=== PATIENT | female | born 1985 | race Two or more races ===

== ENCOUNTER 2022-04-04 11:35 | Inpatient (IN) ==
[2022-04-04] MEDS ORDERED: REGLAN INJ 10 MG VIAL IVP PRN (12:03)
[2022-04-04] MEDS ORDERED: PHENERGAN INJ 25 MG IM PRN ×2 (12:03→14:28)
[2022-04-04] MEDS ORDERED: PITOCIN IVP ONE (12:03)
[2022-04-04] MEDS ORDERED: DILAUDID INJ IVP PRN (12:03)
[2022-04-04] MEDS ORDERED: D5 LR + PITOCIN 10 UNITS/L 10 UNITS/1,000 ML BAG IV PRN (12:03)
[2022-04-04] MEDS ORDERED: STADOL INJ IVP PRN (12:06)
[2022-04-04] MEDS ORDERED: PITOCIN ONE (12:13)
[2022-04-04] MEDS ORDERED: D5 1/2 NS 1,000 ML 1,000 ML IV ONE (12:14)
[2022-04-04] MEDS ORDERED: BETADINE SOLN ONE (12:14)
[2022-04-04] MEDS ORDERED: D5 1/2 NS 1,000 mL + PITOCIN 20 UNITS/L IV 20 UNITS/1,000 ML BAG IV ONE (12:15)
[2022-04-04] MEDS ORDERED: D5 LR + PITOCIN 10 UNITS/L 10 UNITS/1,000 ML BAG IV ONE (12:15)
[2022-04-04 12:23] LABS: BILIRUBIN,URINE NEGATIVE (NEGATIVE); BLOOD/HEMOGLOBIN,URINE 2+ (NEGATIVE); GLUCOSE, URINE NEGATIVE (NEGATIVE); KETONES,URINE NEGATIVE (NEGATIVE); LEUKOCYTE ESTERASE ,URINE NEGATIVE (NEGATIVE); NITRITES,URINE NEGATIVE (NEGATIVE); PROTEIN,URINE NEGATIVE (NEGATIVE); UROBILINOGEN,URINE NORMAL (NORMAL)
[2022-04-04 12:33] LABS: AMNISURE ROM TEST THERE IS A RUPTURE (NO RUPTURE); APPEARANCE,URINE CLEAR (CLEAR); COLOR,URINE STRAW (YELLOW); RBC,URINE 0-2 /HPF (0-3)
[2022-04-04 12:34] LABS: BACTERIA,URINE NEGATIVE /HPF (NEGATIVE); SQUAMOUS EPITHELIAL CELL,UR FEW /HPF (NEGATIVE)
[2022-04-04 12:40] LABS: BASOPHILS % (AUTO) 0.5 % (0.2-1.0); EOSINOPHILS # (AUTO) 0.1 x10^3/uL (0.0-0.2); EOSINOPHILS % (AUTO) 1.2 % (0.9-2.9); HEMATOCRIT 33.9 % (36.0-47.0); HEMOGLOBIN 11.6 g/dL (12.0-16.0); LYMPHOCYTES # (AUTO) 1.4 X10^3/uL (1.3-2.9); LYMPHOCYTES % (AUTO) 22.3 % (21.0-51.0); MEAN CORPUSCULAR HEMOGLOBIN 29.8 pg (27.0-34.0); MEAN CORPUSCULAR HGB CONC 34.3 g/dL (33.0-35.0); MEAN PLATELET VOLUME 9.6 fL (7.4-11.0); MONOCYTES # (AUTO) 0.5 x10^3/uL (0.3-0.8); MONOCYTES % (AUTO) 7.5 % (0.0-13.0); NEUTROPHILS # (AUTO) 4.4 x10^3/uL (2.2-4.8); NEUTROPHILS % (AUTO) 68.5 % (42.0-75.0); RED CELL DISTRIBUTION WIDTH 13.4 % (11.6-16.5); WHITE BLOOD COUNT 6.5 X10^3/uL (3.6-10.0)
[2022-04-04 12:45] LABS: BLOOD UREA NITROGEN 8 mg/dL (7-18); CALCIUM 8.7 mg/dL (8.5-10.1); CARBON DIOXIDE 21.6 mmol/L (21-32); CHLORIDE 103 mmol/L (98-107); CREATININE 0.42 mg/dL (0.55-1.02); SODIUM 135 mmol/L (136-145); eGFR NON BLACK RACES > 60 (>60)
[2022-04-04] MEDS ORDERED: D5 1/2 NS 1,000 ML 1,000 ML IV SCH (13:00)
[2022-04-04] MEDS ORDERED: XYLOCAINE 2 % (PLAIN) ONE (14:22)
[2022-04-04] MEDS ORDERED: MOTRIN TAB 800 MG PO PRN (14:28)
[2022-04-04] MEDS ORDERED: D5 1/2 NS 1,000 ML 1,000 ML with PITOCIN 20 UNITS IV SCH ×2 (15:00)
[2022-04-04] MEDS ORDERED: DERMOPLAST PAIN RELIEF SPRAY TOP PRN (15:39)
[2022-04-04] MEDS ORDERED: ADACEL or BOOSTRIX TDaP VACCINE IM ONE (15:39)
[2022-04-04] MEDS ORDERED: AMBIEN PO PRN (15:39)
[2022-04-04] MEDS ORDERED: MILK OF MAGNESIA PO PRN (15:39)
[2022-04-05 05:22] LABS: HEMATOCRIT 33.4 % (36.0-47.0); HEMOGLOBIN 11.1 g/dL (12.0-16.0)
[2022-04-05] MEDS ORDERED: PRENATAL PLUS PO SCH (09:00)
[2022-04-05 15:27] VITALS: BP 115/55
== END 2022-04-05 16:20 | disposition home or self-care (01) | DRG 807 ==
LOC: ER 11:35 → LD 11:53 → MED/SURG 15:39
PROVIDERS: ADMIT Obstetrics & Gynecology Obstetrics; ATTEND Obstetrics & Gynecology Obstetrics
DX: Z3A.39 39 weeks gestation of pregnancy; Z37.0 Single live birth; O70.0 First degree perineal laceration during delivery; O26.893 Other specified pregnancy related conditions, third trimester; Z20.822 Contact with and (suspected) exposure to COVID-19